=== PATIENT | female | born 1955 | race Caucasian/White ===

== ENCOUNTER 2020-08-23 09:31 | Inpatient (IN) | payer OTHER ==
[~2020-08-23] VITALS: Ht 168.9 cm; Wt 74.0 kg
--- NOTE | 2020-08-23 10:10 | NUR ---
LATE ENTRY: PT WENT TO [facility] TODAY FOR ABD PAIN. AND IT WAS FOUND THAT SHE WAS IN AFIB RVR AND SHE WAS TOLD TO COME TO ER. PT ARRIVED IN AFIB - 150S-170S RANGE. EKG COMPLETE. LABS DRAWN. IV STARTED. WARM BLAKETS PROVIDED.
[2020-08-23] MEDS ORDERED: THYR180T PO (10:12)
[2020-08-23] MEDS ORDERED: LACT1CAP35 PO (10:35)
[2020-08-23] MEDS ORDERED: METOPROLOL 1 MG/ML, 5ML ONE ×3 (10:42→11:24)
[2020-08-23] MEDS: METOPROLOL 1 MG/ML, 5ML IVPush PRN ×3 (10:47→11:27)
[2020-08-23 10:58] LABS: BASOPHILS % (AUTO) 1 % (0-1); EOSINOPHILS % (AUTO) 1 % (1-7); LYMPHOCYTES % (AUTO) 23 % (22-44); MEAN CORPUSCULAR HEMOGLOBIN 30.9 pg (27.0-34.8); MEAN CORPUSCULAR HGB CONC 33.4 g/dL (32.4-35.8); MEAN PLATELET VOLUME 10.4 fL (7.4-10.4); MONOCYTES % (AUTO) 13 % (2-9); NEUTROPHILS % (AUTO) 62 % (42-75); PLATELET COUNT 286 x10^3/uL (130-400); RED BLOOD COUNT 4.79 x10^6/uL (3.82-5.3); RED CELL DISTRIBUTION WIDTH 13.7 % (9.6-15.2)
[2020-08-23 10:59] LABS: MD NO
[2020-08-23 11:05] LABS: ALBUMIN 3.9 g/dL (3.4-5.0); ANION GAP 9 mmol/L (5-15); CALCIUM 9.4 mg/dL (8.5-10.1); CHLORIDE 103 mmol/L (98-107)
--- NOTE | 2020-08-23 11:12 | NUR ---
PT MEDICATED PER MAR. HR IS IMPROVING. WILL CONTINUE TO MONITOR.
[2020-08-23 11:17] LABS: ALANINE AMINOTRANSFERASE 24 U/L (12-78); ALKALINE PHOSPHATASE 85 U/L (45-117); BILIRUBIN,TOTAL 0.7 mg/dL (0.2-1.0); CREATININE 0.97 mg/dL (0.55-1.02)
--- NOTE | 2020-08-23 11:34 | NUR ---
3RD DOSE OF LOPRESSOR GIVEN. WILL CONTINE TO MONITOR
[2020-08-23 11:36] LABS: FREE T4 (FREE THYROXINE) 1.34 ng/dL (0.76-1.46)
[2020-08-23 11:55] LABS: TROPONIN I < 0.015 ng/mL (0.000-0.045)
[2020-08-23] MEDS ORDERED: DIGOXIN 0.25 MG/ML, 2ML IVPush ONE (12:00)
[2020-08-23] MEDS ORDERED: DIGOXIN 0.25 MG/ML, 2ML ONE (12:04)
--- NOTE | 2020-08-23 12:10 | NUR ---
MADE AWARE OF PT HR. SEE MAR FOR INTERVENTIONS
[2020-08-23] MEDS ORDERED: ENOXAPARIN 80 MG/0.8 ML ONE (12:29)
[2020-08-23] MEDS ORDERED: ENOXAPARIN 80 MG/0.8 ML SQ ONE (13:00)
[2020-08-23] MEDS ORDERED: TEMAZEPAM 15 MG CAPSULE PO PRN (13:30)
[2020-08-23] MEDS ORDERED: LABETALOL 5MG/ML, 20ML IVPush PRN (13:30)
[2020-08-23] MEDS ORDERED: MELATONIN 5 MG TABLET PO PRN (13:30)
[2020-08-23] MEDS ORDERED: ONDANSETRON 2MG/ML, 2ML IVPush PRN (13:30)
[2020-08-23] MEDS ORDERED: METOPROLOL TARTRATE 25 MG TAB PO SCH (13:30)
[2020-08-23 14:00] VITALS: BP 119/74
[2020-08-23] MEDS: APIXABAN 5 MG TABLET PO SCH ×2 (15:29→20:58)
[2020-08-23 19:19] VITALS: BP 138/88
[2020-08-23] MEDS: METOPROLOL TARTRATE 25 MG TAB PO SCH (20:58)
[2020-08-24 00:46] VITALS: BP 129/84
[2020-08-24 05:28] LABS: ANION GAP 5 mmol/L (5-15); CALCIUM 8.7 mg/dL (8.5-10.1); CHLORIDE 105 mmol/L (98-107)
[2020-08-24 05:29] LABS: CREATININE 0.77 mg/dL (0.55-1.02)
[2020-08-24 05:31] LABS: BASOPHILS % (AUTO) 2 % (0-1); EOSINOPHILS % (AUTO) 1 % (1-7); LYMPHOCYTES % (AUTO) 40 % (22-44); MEAN CORPUSCULAR HEMOGLOBIN 30.6 pg (27.0-34.8); MEAN CORPUSCULAR HGB CONC 32.9 g/dL (32.4-35.8); MONOCYTES % (AUTO) 13 % (2-9); NEUTROPHILS % (AUTO) 44 % (42-75); PLATELET COUNT 259 x10^3/uL (130-400); RED BLOOD COUNT 4.31 x10^6/uL (3.82-5.3); RED CELL DISTRIBUTION WIDTH 13.8 % (9.6-15.2)
[2020-08-24 05:47] LABS: MD NO
[2020-08-24] MEDS ORDERED: THYROID 30 MG TABLET PO SCH (06:00)
[2020-08-24 07:03] VITALS: BP 110/74
[2020-08-24] MEDS ORDERED: THYR30TA PO (07:23)
[2020-08-24] MEDS ORDERED: APIX5TAB PO (07:23)
[2020-08-24] MEDS ORDERED: METO25TA35 PO (07:23)
[2020-08-24] MEDS ORDERED: DIGO125T85 PO (07:23)
[2020-08-24] MEDS: ACETAMINOPHEN 325 MG TABLET PO PRN ×2 (08:38→12:50)
[2020-08-24] MEDS: APIXABAN 5 MG TABLET PO SCH ×2 (08:38→17:05)
[2020-08-24] MEDS: METOPROLOL TARTRATE 25 MG TAB PO SCH ×2 (08:38→17:03)
[2020-08-24] MEDS ORDERED: DIGOXIN 0.125 MG TABLET PO SCH (09:00)
[2020-08-24] MEDS ORDERED: ENOXAPARIN 40 MG/0.4 ML SQ SCH (13:30)
== END 2020-08-24 17:49 | disposition home or self-care (01) | DRG 309 ==
LOC: ED 11:15 → EDIP 12:10 → 5SO 12:58
PROVIDERS: ADMIT Hospitalist; ATTEND Hospitalist
DX: I48.91 Unspecified atrial fibrillation (principal); D68.69 Other thrombophilia; I42.9 Cardiomyopathy, unspecified; F43.21 Adjustment disorder with depressed mood; M81.0 Age-related osteoporosis without current pathological fracture; Z87.891 Personal history of nicotine dependence; E05.90 Thyrotoxicosis, unspecified without thyrotoxic crisis or storm
CPT/HCPCS: 36415; 71045; 80048; 80053; 83735; 84100; 84439; 84443; 84481; 84484; 85025; 93005; 93306; G0378; J1650; J1160

== ENCOUNTER 2020-08-26 09:47 | Emergency (ER) | payer OTHER ==
[~2020-08-26] VITALS: Ht 167.6 cm; Wt 70.9 kg
[~2020-08-26 09:47] MED LIST: APIX5TAB PO; DIGO125T85 PO; LACT1CAP35 PO; METO25TA35 PO; THYR180T PO; THYR30TA PO
[2020-08-26] MEDS ORDERED: METOPROLOL 1 MG/ML, 5ML IVPush PRN (10:30)
[2020-08-26] MEDS ORDERED: SODIUM CHLORIDE FLUSH 10ML SYR IVF ONE (10:30)
[2020-08-26] MEDS ORDERED: METOPROLOL 1 MG/ML, 5ML ONE (10:42)
[2020-08-26 12:48] VITALS: BP 125/86
== END 2020-08-26 12:57 | disposition home or self-care (01) ==
LOC: ED 10:24
DX: T38.1X1A Poisoning by thyroid hormones and substitutes, accidental (unintentional), initial encounter (principal); I48.91 Unspecified atrial fibrillation; Y92.89 Other specified places as the place of occurrence of the external cause
CPT/HCPCS: 93005; 96374; 99285

== ENCOUNTER 2020-09-26 06:15 | Day surgery (SDC) | payer OTHER ==
[~2020-09-26] VITALS: Ht 168.9 cm; Wt 70.0 kg
[2020-09-26 06:38] VITALS: BP 105/72
[2020-09-26] MEDS ORDERED: SODIUM CHLORIDE 0.9% 500 ML IV PRN (07:00)
[2020-09-26 07:16] LABS: ANION GAP 8 mmol/L (5-15); CALCIUM 9.6 mg/dL (8.5-10.1); CHLORIDE 110 mmol/L (98-107); CREATININE 0.88 mg/dL (0.55-1.02)
[2020-09-26] MEDS ORDERED: PROPOFOL 10 MG/ML, 20ML ONE (11:26)
== END 2020-09-26 09:17 | disposition home or self-care (01) ==
LOC: CACL 06:15
PROVIDERS: ATTEND Internal Medicine Clinical Cardiac Electrophysiology
DX: I48.19 Other persistent atrial fibrillation (principal); E03.9 Hypothyroidism, unspecified; F17.210 Nicotine dependence, cigarettes, uncomplicated; Z79.01 Long term (current) use of anticoagulants; Z79.890 Hormone replacement therapy; Z79.899 Other long term (current) drug therapy; Z88.0 Allergy status to penicillin
CPT/HCPCS: 36415; 80048; 80162; 92960; J2704

== ENCOUNTER → 2021-02-14 | Outpatient (CLI) | payer OTHER | END | disposition home or self-care (01) | LOC: CVU 08:05 | PROVIDERS: ATTEND Internal Medicine Clinical Cardiac Electrophysiology | DX: I08.1 Rheumatic disorders of both mitral and tricuspid valves (principal); I48.19 Other persistent atrial fibrillation; Z79.01 Long term (current) use of anticoagulants | CPT/HCPCS: 93306 ==